=== PATIENT | female | born 1990 | race African-American/Black ===

== ENCOUNTER 2016-11-14 14:30 | Emergency (ER) | payer SELFPAY ==
--- NOTE | ~2016-11-14 | CR63 ---
[facility] A Service of [facility] & [facility] RADIOLOGY TEXT RESULTS PATIENT: ARBEN COUCH LOCATION: CFTX : 86 UNIT #: [id number] AGE: [address]: Harmony Nolan SEX: F ORDER DR: [id number] [facility] [address] [place], [place] [address] [id number] MR#: [id number] Acc #: [id number] NAME: ARBEN COUCH : 1990 SEX: F STUDY DATE/TIME: 11/14/2016 15:06 UNIT: [facility] ROOM: STUDY DESCRIPTION: CR Chest 2 View Attending Physician: Harmony Nolan Pa-C Ordering Physician: Lucie Lott P.A.-C. Primary Care Physician: Primary Care Physician No MEDICAL IMAGING REPORT This report is preliminary unless electronic signature is present EXAM Chest PA and lateral HISTORY SUPPLIED Cough, chest tightness beginning 3 weeks ago. FINDINGS PA and lateral views are obtained. The cardiovascular configuration in the chest is normal and the lungs are clear. CONCLUSION Normal chest. Dictated by... Raúl Real M.D. THIS IS AN ELECTRONICALLY VERIFIED REPORT Raúl Real M.D. at 11/16/2016 3:10 PM MADINA/carolyn TD: 11/14/2016 20:32 JOB #: [id number] MEDICAL IMAGING REPORT Page 1 of 1 COPY
[2016-11-14 14:44] LABS: URINE SOURCE CLEAN CATCH
[2016-11-14 14:56] LABS: URINE APPEARANCE CLEAR; URINE BILIRUBIN NEG (NEG); URINE BLOOD NEG (NEG); URINE COLOR YELLOW; URINE GLUCOSE NEG (NEG); URINE KETONE TRACE (NEG); URINE LEUKOCYTE ESTERASE TRACE (NEG); URINE NITRATE NEG (NEG); URINE PH 6.5 (5-8); URINE PROTEIN NEG (NEG); URINE SPECIFIC GRAVITY 1.029 (1.003-1.035)
[2016-11-14 14:59] LABS: U HYALINE CASTS AUWI 0-2 /[LPF]; URBCS1 AUWI 0-2 /[HPF] (0-2); URINE BACTERIA AUWI NEG (NEGATIVE); URINE SQUAMOUS EPITHELIAL CELL NONE SEEN /[HPF]; UWBCS1 AUWI 0-2 (0-5)
[2016-11-14 15:05] LABS: CULTURE INDICATED? NO
[2016-11-17 00:20] LABS: CHLAMYDIA TRACH Not Detected (Not Detected); N GONOR Not Detected (Not Detected)
== END 2016-11-14 17:41 | disposition home or self-care (01) ==
LOC: CFTX 14:30
PROVIDERS: Physician Assistant Medical
DX: R10.9 Unspecified abdominal pain (principal)
CPT/HCPCS: 71020; 81003; 84703; 87491; 87591; 87808; 87905; 99284